=== PATIENT | male | born 1955 | race Caucasian/White ===

== ENCOUNTER → 2020-10-15 | Outpatient (CLI) | payer MEDICARE | LOC: HEART 5 08:44 | DX: I08.2 Rheumatic disorders of both aortic and tricuspid valves (principal); R93.1 Abnormal findings on diagnostic imaging of heart and coronary circulation | CPT/HCPCS: 93306 ==

== ENCOUNTER → 2021-04-15 | Outpatient (CLI) | payer MEDICARE, OTHER | LOC: HEART 5 09:05 | DX: I35.0 Nonrheumatic aortic (valve) stenosis (principal) | CPT/HCPCS: 93306 ==

== ENCOUNTER → 2021-08-20 | Day surgery (SDC) | payer MEDICARE ==
[~2021-08-20] MED LIST: ASPIRIN CHEWABL81 MG PO; COLACE CLEAR50 MG PO; CRESTOR10 MG PO; CYMBALTA 30 MG30 MG PO; FENTANYL1 EACH TD; HYDROCODON-ACE1 EAC2 PO; MULTIPLE VITAM1 EAC1 PO; NORVASC5 MG PO; PROTONIX 40 MG40 M1 PO; STIOLTO RESPIMAT4 GM INH; TOPROL XL100 MG PO; ZANAFLEX4 M1 PO; ZESTRIL10 MG PO
== END | disposition home or self-care (01) ==
LOC: CATH 07:05
DX: I35.0 Nonrheumatic aortic (valve) stenosis (principal); I10 Essential (primary) hypertension; E78.00 Pure hypercholesterolemia, unspecified; J44.9 Chronic obstructive pulmonary disease, unspecified; K21.9 Gastro-esophageal reflux disease without esophagitis; F17.210 Nicotine dependence, cigarettes, uncomplicated; Z88.8 Allergy status to other drugs, medicaments and biological substances; Z79.82 Long term (current) use of aspirin; Z79.899 Other long term (current) drug therapy; Z20.822 Contact with and (suspected) exposure to COVID-19
CPT/HCPCS: 93005; 93312; 93320; J2250; J2310; J2704; J3010; J7040

== ENCOUNTER → 2021-10-06 | Outpatient (CLI) | payer MEDICARE | LOC: KOH-I 11:01 | DX: F17.210 Nicotine dependence, cigarettes, uncomplicated (principal); R91.8 Other nonspecific abnormal finding of lung field; I70.0 Atherosclerosis of aorta | CPT/HCPCS: 71271 ==